=== PATIENT | male | born 1970 | race Caucasian/White ===

== ENCOUNTER 2019-11-16 23:47 | Emergency (ER) | payer OTHER ==
[~2019-11-16] VITALS: Ht 170.2 cm; Wt 74.8 kg
[2019-11-17] VITALS: BP 140/80
--- NOTE | 2019-11-17 00:03 | NUR ---
PT W/C ASSITED TO BED #9
--- NOTE | 2019-11-17 00:05 | NUR ---
C/O RASH X 6 DAYS. UNILATERAL CIRCULAR NODULES PRESENT ON ENTIRE LEFT SIDE OF UPPER BACK TO THE NECK AND LEFT SHOULDER AND UPPER ARMS. + REDNESS. NO DRIANAGE PRESENT. VSS. 10 PAIN. A&O X4. W/C ASSISTED. NKDA. PMH: DENIES.
[2019-11-17 00:45] VITALS: BP 140/80
--- NOTE | 2019-11-17 00:45 | NUR ---
Patient discharged with v/s stable. Written and verbal after care instructions given and explained. Patient alert, oriented and verbalized understanding of instructions. Wheel Chair Assisted with to car. All questions addressed prior to discharge. ID band removed. Patient advised to follow up with PMD. Rx of VALACYCLOVIR given. Patient educated on indication of medication including possible reaction and side effects. Opportunity to ask questions provided and answered.
== END 2019-11-17 00:45 | disposition home or self-care (01) ==
LOC: MED 23:47
DX: B02.9 Zoster without complications (principal)
CPT/HCPCS: 99283